=== PATIENT | female | born 1990 | race Hispanic/Latino ===

== ENCOUNTER 2018-06-26 19:40 | Emergency (ER) | payer SELFPAY ==
[~2018-06-26] VITALS: Ht 154.9 cm; Wt 49.9 kg
[2018-06-26] MEDS ORDERED: LORAZEPAM 1 MG TAB PO ONE (20:15)
[2018-06-26 21:30] VITALS: BP 128/86
== END 2018-06-26 21:45 | disposition home or self-care (01) ==
LOC: FSED 19:40
DX: R07.89 Other chest pain (principal); F41.1 Generalized anxiety disorder
CPT/HCPCS: 99283